=== PATIENT | female | born 1950 | race Caucasian/White ===

== ENCOUNTER 2017-09-13 14:38 | Outpatient (CLI) | payer OTHER ==
--- NOTE | 2017-09-14 09:57 | OP Clinic Progress Note ---
REASON FOR VISIT: This 66-year-old lady is seen with a history of cerumen impactions. She wears hearing aids bilaterally. She states that she does not have a family history of hearing loss. There is an issue of a right ear perforated eardrum with otitis media by her history. She states that her ear canals are small. The left ear canal is somewhat smaller than the right. She wears bilateral hearing aids and has [id number] hearing aids. She has actually a fairly scant amount of cerumen bilaterally right where the hearing aids fit and may have some degree of obstruction to the orifices of the hearing aid. PLAN: These were debrided and cleaned under the microscope. The patient states that she would like to get these re-cleaned and she suggested maybe in 3 to 6 months. I suggested perhaps in 7 months, at the beginning of next year, I could re-clean both ears under the microscope here in [place]. cc: Kimani FU
== END 2017-09-13 14:40 ==
LOC: ENT 14:38
PROVIDERS: ATTEND Otolaryngology
DX: H61.23 Impacted cerumen, bilateral (principal)
CPT/HCPCS: 69210; 99213

== ENCOUNTER 2019-04-11 11:24 | Outpatient (CLI) | payer OTHER, MEDICARE ==
--- NOTE | 2019-04-11 20:01 | Diagnostic Imaging Report ---
PATIENT MR#: [id number] PATIENT PATIENT NAME: STEVE NORTH DATE OF : 1950 REFERRING PHYSICIAN: Shantanu Iniguez EXAM DATE: 04/11/2019 ACCESSION NUMBER: [id number] EXAM DESCRIPTION: RIBS UNILAT 2 VIEWS HISTORY: REACHING ACROSS TABLE AT WORK HEARD SOMETHING POP. COMPARISON: No relevant comparison is available at the time of interpretation. RIB XRAY, 4 Views: Lungs: Clear, without pneumothorax. Ribs: There is a subtle cortical irregularity of the left 5th rib laterally, which may represent a no ndisplaced fracture. Soft tissues: No retained foreign bodies. IMPRESSION: Possible nondisplaced fracture of the left 5th rib. Correlate with site of point tenderne ss to confirm diagnosis. Read by: Dr. Leighton Alonso Transcribed by: Leighton Alonso Transcribed Date: 04/11/2019 8:00:39 PM Electronically signed by: Dr. Leighton Alonso Date signed: 04/11/2019 8:00:39 PM
== END 2019-04-11 11:34 ==
LOC: RAD 11:24
PROVIDERS: ATTEND Family Medicine
DX: R07.81 Pleurodynia (principal); Z78.0 Asymptomatic menopausal state
CPT/HCPCS: 77080